=== PATIENT | female | born 1975 | race Caucasian/White ===

== ENCOUNTER 2018-11-16 14:29 | Emergency (ER) | payer MEDICAID, OTHER ==
[~2018-11-16] VITALS: Ht 154.9 cm; Wt 65.9 kg
[2018-11-16] MEDS ORDERED: LIDOCAINE 5% TRANSDERMAL PATCH TD ONE (17:15)
[2018-11-16] MEDS ORDERED: KETOROLAC TROMETHAMINE 60 MG/2 ML VIAL IM ONE (17:15)
[2018-11-16] MEDS ORDERED: HydrOXYzine PAMOATE 50 MG CAPSULE PO ONE (17:45)
[2018-11-16 18:25] LABS: APPEARANCE,URINE CLEAR (CLEAR); BILIRUBIN,URINE NEGATIVE (NEGATIVE); GLUCOSE, URINE (UA) NEGATIVE (NEGATIVE); KETONES,URINE TRACE mg/dL (NEGATIVE); LEUKOCYTE ESTERASE ,URINE NEGATIVE (NEGATIVE); NITRATE,URINE NEGATIVE (NEGATIVE); OCCULT BLOOD,URINE SMALL (NEGATIVE); PROTEIN,URINE NEGATIVE (NEGATIVE); UROBILINOGEN,URINE 0.2 mg/dL (<=1.0)
[2018-11-16 18:56] LABS: BACTERIA,URINE None Seen /HPF (None Seen); RBC,URINE 0-2 /HPF (0-2); SQUAMOUS EPITHELIAL CELL,UR Rare /LPF (None Seen); WBC,URINE None Seen /HPF (0-5)
[2018-11-16 20:37] VITALS: BP 121/74
[2018-11-16] MEDS ORDERED: DIAZEPAM 5 MG TABLET PO ONE (20:45)
== END 2018-11-16 20:43 | disposition home or self-care (01) ==
LOC: EMS 14:30
DX: M54.5 Low back pain (principal)
CPT/HCPCS: 72100; 81001; 96372; 99284; J1885